=== PATIENT | male | born 1970 | race Caucasian/White ===

== ENCOUNTER 2020-08-28 15:27 | Emergency (ER) | payer OTHER ==
[2020-08-28 15:40] VITALS: TEMP 98.3; BMI 55.9
[2020-08-28] MEDS ORDERED: VANCOMYCIN 1 GM in D5W (PRE-DOCKED) 1,000 MG/250 ML IVPB ONE (17:47)
[2020-08-28 18:33] LABS: BASO % 0.5 % (0-2.0); EOS % 4.5 % (0-4.5); HEMATOCRIT 36.7 % (35.4-49); HEMOGLOBIN 12.4 GM/dL (11.7-16.9); LYMPH % 22.2 % (8-40); MCH 28.9 pg (25.7-33.7); MCHC 33.9 g/dl (32.0-35.9); MEAN CELL VOLUME 85.4 fl (80-96); MEAN PLT VOLUME 7.7 fl (7.5-11.1); MONO % 10.3 % (3.8-10.2); NEUT % 62.5 % (42.8-82.8); PLATELET COUNT 300 10^3/uL (134-434); RBC 4.29 M/mm3 (4.00-5.60); WHITE BLOOD COUNT 8.2 K/mm3 (4.0-10.0)
[2020-08-28 18:47] LABS: ALBUMIN 3.5 g/dl (3.4-5.0)
[2020-08-28 18:49] LABS: BLOOD UREA NITROGEN 10.6 mg/dL (7-18)
[2020-08-28 18:51] LABS: CREATININE 0.9 mg/dL (0.55-1.3)
[2020-08-28 18:52] LABS: BILIRUBIN,TOTAL 0.3 mg/dL (0.2-1); TOT PROT 7.8 g/dl (6.4-8.2)
[2020-08-28] MEDS ORDERED: DALBAVANCIN HCL 1,500 MG in DEXTROSE 5%-WATER - 500 ML IVPB ONE (19:01)
[2020-08-28] MEDS ORDERED: diphenhydrAMINE HCL 25 MG CAPSULE (FP) PO ONE ×2 (20:33→20:35)
[2020-08-28 22:22] VITALS: BP 157/86; PULSE 82
== END 2020-08-28 22:25 | disposition home or self-care (01) ==
LOC: JER 15:27
DX: L03.116 Cellulitis of left lower limb (principal); S81.802A Unspecified open wound, left lower leg, initial encounter; S81.801A Unspecified open wound, right lower leg, initial encounter
CPT/HCPCS: 36415; 71046-TC-FY; 80053; 85025; 87040; 93005; 93010; 99285-25; J0875

== ENCOUNTER 2023-04-23 08:00 | Inpatient (IN) | payer OTHER ==
[2023-04-27 08:39] VITALS: BMI 55.9
[2023-04-30] MEDS ORDERED: BUPIVACAINE HCL/PF 0.25% (2.5MG/ML) 10 ML VIAL ONE (09:33)
[2023-04-30] MEDS ORDERED: SUCCINYLCHOLINE CHLORIDE 200 MG/10 ML SYRINGE ONE ×2 (10:54→11:09)
[2023-04-30] MEDS ORDERED: PROPOFOL 20 ML ONE ×2 (10:54→12:19)
[2023-04-30] MEDS ORDERED: MIDAZOLAM HCL 2 MG/2 ML SINGLE DOSE VIAL ONE (10:54)
[2023-04-30] MEDS ORDERED: ROCURONIUM BROMIDE 50 MG/5 ML SYRINGE ONE ×2 (11:16→12:40)
[2023-04-30] MEDS ORDERED: ceFAZolin SODIUM 1 GM VIAL ONE ×3 (11:20)
[2023-04-30] MEDS ORDERED: KETOROLAC TROMETHAMINE 30 MG/1 ML VIAL ONE (11:26)
[2023-04-30] MEDS ORDERED: DEXAMETHASONE SOD PHOSPHATE 4 MG/1 ML VIAL ONE (11:26)
[2023-04-30] MEDS ORDERED: ONDANSETRON 4 MG/2 ML VIAL ONE ×2 (11:26)
[2023-04-30] MEDS ORDERED: ACETAMINOPHEN INJECTION 100 ML IVPB ONE (11:27)
[2023-04-30] MEDS ORDERED: DEXMEDETOMIDINE HCL 200 MCG/2 ML IVPB ONE (11:27)
[2023-04-30] MEDS ORDERED: SUGAMMADEX SODIUM 200 MG/2 ML VIAL ONE (12:29)
[2023-04-30] MEDS: BUPIVACAINE HCL/PF 0.25% (2.5MG/ML) 10 ML VIAL IJ ONE (13:14)
[2023-04-30] MEDS ORDERED: ONDANSETRON 4 MG/2 ML VIAL IVPUSH PRN (13:21)
[2023-04-30] MEDS ORDERED: HYDROmorphone HCL/PF 1 MG/ML VIAL IVPB PRN (13:25)
[2023-04-30 14:22] LABS: HEMATOCRIT 37.2 % (35.4-49); HEMOGLOBIN 12.8 G/dL (11.7-16.9); MCH 29.8 pg (25.7-33.7); MCHC 34.4 g/dl (32.0-35.9); MEAN CELL VOLUME 86.5 fl (80-96); MEAN PLT VOLUME 8.3 fl (7.5-11.1); PLATELET COUNT 247.6 10^3/uL (134-434); RDW 15.3 % (11.9-15.9); WHITE BLOOD COUNT 15.3 10^3/uL (4.0-10.8)
[2023-04-30] MEDS ORDERED: METOCLOPRAMIDE HCL INJECTION 10 MG/2 ML VIAL ONE (14:34)
[2023-04-30] MEDS: METOCLOPRAMIDE HCL INJECTION 10 MG/2 ML VIAL IVPB SCH (14:37)
[2023-04-30 14:46] LABS: ALBUMIN 3.9 g/dl (3.4-5.0); BILIRUBIN,TOTAL 0.5 mg/dl (0.2-1); CALCIUM 9.3 mg/dl (8.5-10.1); CREATININE 1.1 mg/dl (0.6-1.3); POTASSIUM 4.2 mmol/L (3.5-5.1); TOT PROT 7.1 g/dl (6.4-8.2)
[2023-04-30] MEDS: SODIUM CHLORIDE 1,000 ML IV SCH (15:30)
[2023-04-30 20:56] LABS: HEMATOCRIT 37.7 % (35.4-49); HEMOGLOBIN 13.5 G/dL (11.7-16.9); MCH 30.9 pg (25.7-33.7); MCHC 35.8 g/dl (32.0-35.9); MEAN CELL VOLUME 86.3 fl (80-96); MEAN PLT VOLUME 8.4 fl (7.5-11.1); PLATELET COUNT 258.7 10^3/uL (134-434); RBC 4.37 10^6/uL (4.00-5.60); RDW 15.7 % (11.9-15.9); WHITE BLOOD COUNT 13.1 10^3/uL (4.0-10.8)
[2023-04-30 21:10] LABS: BILIRUBIN,TOTAL 0.6 mg/dl (0.2-1); CALCIUM 9.4 mg/dl (8.5-10.1); POTASSIUM 4.3 mmol/L (3.5-5.1); TOT PROT 7.3 g/dl (6.4-8.2)
[2023-04-30] MEDS: FAMOTIDINE 20 MG/50 ML IVPB 20 MG/50 ML MG IVPB SCH (21:12)
[2023-05-01] MEDS: HYDROmorphone HCL/PF 1 MG/ML VIAL IVPB PRN (05:42)
[2023-05-01 08:56] LABS: ALBUMIN 3.9 g/dl (3.4-5.0); BILIRUBIN,TOTAL 0.8 mg/dl (0.2-1); CALCIUM 8.8 mg/dl (8.5-10.1); CREATININE 0.9 mg/dl (0.6-1.3); TOT PROT 7.1 g/dl (6.4-8.2)
[2023-05-01 08:57] LABS: POTASSIUM 4.1 mmol/L (3.5-5.1)
[2023-05-01 09:00] LABS: HEMATOCRIT 35.8 % (35.4-49); HEMOGLOBIN 12.5 G/dL (11.7-16.9); MCH 30.5 pg (25.7-33.7); MCHC 34.8 g/dl (32.0-35.9); MEAN CELL VOLUME 87.6 fl (80-96); MEAN PLT VOLUME 9.3 fl (7.5-11.1); PLATELET COUNT 260.5 10^3/uL (134-434); RBC 4.09 10^6/uL (4.00-5.60); RDW 15.1 % (11.9-15.9); WHITE BLOOD COUNT 16.4 10^3/uL (4.0-10.8)
[2023-05-01] MEDS ORDERED: ACETAMINOPHEN 325 MG TABLET (FP) PO PRN (09:29)
[2023-05-01] MEDS ORDERED: SODIUM CHLORIDE 1,000 ML IV SCH (09:30)
[2023-05-01 09:38] VITALS: RESP 17
[2023-05-01] MEDS: LISINOPRIL 10 MG TABLET PO SCH (09:43)
[2023-05-01] MEDS: oxyCODONE HCL 5 MG TABLET PO PRN (12:39)
[2023-05-01 14:05] VITALS: BP 134/68; PULSE 65; TEMP 97.6
== END 2023-05-01 17:22 | disposition home or self-care (01) | DRG 621 ==
LOC: FM/S 04-30 09:16
PROVIDERS: ADMIT Surgery; ATTEND Surgery
PROC: 0FB24ZX Excision of Left Lobe Liver, Percutaneous Endoscopic Approach, Diagnostic (ICD-10-PCS; 2023-04-30)
PROC: 0DB64Z3 Excision of Stomach, Percutaneous Endoscopic Approach, Vertical (ICD-10-PCS; principal; 2023-04-30 11:33)
DX: E66.01 Morbid (severe) obesity due to excess calories (principal); I10 Essential (primary) hypertension; R16.0 Hepatomegaly, not elsewhere classified; Z68.43 Body mass index [BMI] 50.0-59.9, adult
CPT/HCPCS: 36415; 74240-TC-FY; 80053; 85027; 86850; 86900; 86901; 94760; J0131